=== PATIENT | female | born 1970 | race Caucasian/White ===

== ENCOUNTER → 2021-04-25 09:10 | Outpatient (CLI) | payer OTHER, SELFPAY ==
[2021-04-25 12:47] LABS: Thyroid Stim Hormone (TSH) 1.08 uIU/mL (0.358-3.74)
[2021-04-26 08:04] LABS: Thyroid Peroxidase AB < 8 IU/mL (0-34)
== END ==
PROVIDERS: PCP Family Medicine; Referring Provider Internal Medicine Endocrinology, Diabetes & Metabolism; Visit Provider Internal Medicine Endocrinology, Diabetes & Metabolism
DX: E04.9 Nontoxic goiter, unspecified (principal)
CPT/HCPCS: 36415; 84439; 84443; 86376

== ENCOUNTER 2022-03-03 13:17 | Emergency (ER) | payer OTHER, SELFPAY ==
[2022-03-03 13:18] VITALS: BP 136/61; PULSE 57; RESP 18; TEMP 36.7; O2SAT 99; BMI 24.7
--- NOTE | 2022-03-03 13:32 | VDLE_ITS ---
[id number] VL^VDUL^Venous Duplex US- Unilateral [id number] Reason For Study: pain RIGHT Chronic vein wall thickening is noted in the CFV, FV, POP V with normal venous flow patterns. T/P Trunk is compressible. PTV is compressible. RT PerV is compressible. GSV is normal. Procedure This is a venous duplex using B-mode, color flow and spectral Doppler. Exam performed portable in ED. The exam was abbreviated due to the COVID 19 protocol. The exam was diagnostic. A preliminary report was called and/or faxed to Dr. Johnson. VL/Venous Duplex US, Unilateral Interpretation Summary Vein wall thickening is noted in the right common femoral, femoral, and poplite al veins although normal venous flow pattern is identified. Patent and compressible right great saphenous vein No evidence for acute deep venous thrombosis Abbreviated COVID-19 protocol utilized Ordering Physician: Netta Johnson Performed By: Stephan Albarran RVT
--- NOTE | 2022-03-03 13:33 | EX.ED.DYSGE1 ---
HPI History of Present Illness Chief Complaint: Lower Extremity Injury Informant: patient Onset/Context/Timing Onset: Days (4 to 5 days) Context: Gradual Onset Timing: Waxes and wanes Current Severity: Mild Maximum Severity: Moderate Narrative Narrative: Patient presents secondary to right leg pain with occasional numbness and tingling. She has a history of blood clot and is concerned for this. Symptoms have been ongoing for for 5 days. 4 days ago she was in the car for 12 hours on a ride back from [place]. [facility] Medical History Cataracts, bilateral Enlarged thyroid Home Medications fish oil PO DAILY 01/01/21 [History Last Taken Unknown] omeprazole 20 mg capsule,delayed release 20 mg PO DAILY 01/01/21 [History Last Taken Unknown] Allergy/AdvReac Type Severity Reaction Status Date / Time morphine Allergy Mild itching Verified 03/03/22 13:20 Family History (Updated 01/01/21 @ 09:08 by Alannah Powers NP-C) Other Cancer Colon cancer Ovarian cancer Surgical History H/O shoulder surgery History of hip replacement Social History Smoking Status: Never smoker alcohol intake: never substance use type: does not use what type of physical activity do you participate in: none ROS ROS ED Constitutional Constitutional ED: Denies chills or fever(s) Eyes Eyes: Denies change in vision or discharge from eye(s) ENT ENT ED: Denies discharge from eye(s), rhinorrhea or sore throat Cardiovascular Cardiovascular: Denies chest pain or palpitations Respiratory/Chest Respiratory/Chest: Denies cough or dyspnea Gastrointestinal Gastrointestinal: Denies abdominal pain, diarrhea, nausea or vomiting Genitourinary Genitourinary ED: Denies difficulty urinating or dysuria Musculoskeletal Musculoskeletal: Reports extremity pain; Denies back pain Integumentary Denies Abrasions or rash Neurologic Neurologic: Reports paresthesias; Denies headache(s) or weakness Allergic/Immunologic Allergic/Immunologic ED: Denies lip swelling or urticaria EXAM Physical Exam Const Vital Signs: 03/03/22 13:18 Temperature 98.1 F Temperature Source Temporal Pulse Rate 57 L Respiratory Rate 18 Blood Pressure 136/61 H Blood Pressure Mean 86 Pulse Ox 99 Oxygen Delivery Method Room Air Positive well nourished and well developed General Appearance ED: well developed HEENT Reports normocephalic and head/scalp atraumatic Eyes PERRL and EOMs intact bilaterally Neck supple Chest Wall inspection of chest normal and palpation of chest normal Resp normal respiratory effort and clear to auscultation bilaterally Cardio regular rate and regular rhythm GI normal to inspection, nondistended, normoactive bowel sounds Palpation: soft Extremity Extremity Narrative: No significant right lower extremity edema. No calf tenderness on exam. Strong distal pulses with good range of motion. Neuro oriented x3 and no sensory deficits noted Sensorium / Orientation: alert Motor Exam: strength 5/5 throughout Psych mental status grossly normal Skin no rashes or lesions noted MDM MDM MDM Narrative Medical decision making narrative: Venous ultrasound is obtained. Tech reports no evidence of acute DVT. There is some evidence of old clot scarring. This was discussed with patient. She will follow-up with her primary care physician, Dr. Trimble. Discharge Plan Triage Chief Complaint: Lower Extremity Injury Other Complaint: Numb/Ting ED Provider: Netta Johnson Dx/Rx/DC Orders Clinical Impression: Leg pain, right Instructions: ED Contusion, Lower Extremity, ED Paraesthesias Prescriptions: No Action fish oil 600 mg capsule PO DAILY omeprazole 20 mg capsule,delayed release(DR/EC) 20 mg PO DAILY Primary Care Provider: Mihir Trimble Referrals: Mihir Trimble MD [Primary Care Provider] - 1 Week if not improving Disposition Disposition: Home, Self Care
== END 2022-03-03 14:10 | disposition home or self-care (01) ==
PROVIDERS: Emergency Provider Emergency Medicine; PCP Family Medicine; Visit Provider Emergency Medicine
DX: M79.604 Pain in right leg (principal); R20.0 Anesthesia of skin
CPT/HCPCS: 93971; 99282

== ENCOUNTER → 2023-04-30 | Outpatient (CLI) | payer OTHER, SELFPAY ==
--- NOTE | 2023-04-30 13:47 | ECHOD_ITS ---
Reason For Study: MYOTONIC DYSTROPHY Procedure This was a 2D Doppler, Color Flow transthoracic echocardiogram. The study was technically difficult. Exam performed in department. Left Ventricle Normal LV size. The estimated ejection fraction is 65 %. No evidence for diastolic dysfunction. No regional wall motion abnormalities noted. Right Ventricle Normal RV size. Normal systolic function. Atria Normal left atrium. Normal right atrium. No doppler evidence for ASD. Mitral Valve There is no mitral valve stenosis. Trivial mitral valve insufficiency. Tricuspid Valve There is no tricuspid stenosis. Trivial tricuspid valve insufficiency. Unable to estimate RV systolic pressure due to insufficient tricuspid regurgitant envelope. Aortic Valve Trisinus/trileaflet aortic valve. There is no aortic stenosis. No aortic valve insufficiency. Pulmonic Valve There is no pulmonic valvular stenosis. No pulmonic valve insufficiency. Great Vessels Normal aortic root. Pericardium/Pleural No pericardial effusion. MMode/2D Measurements & Calculations LVIDd: 4.7 cm IVSd: 1.1 cm Ao root diam: 3.1 cm LVIDs: 3.3 cm LVPWd: 1.0 cm RVDd: 3.6 cm FS: 30.8 % LAV(MOD-bp): 61.7 ml LVAd ap4: 25.3 cm2 LVAd ap2: 22.8 cm2 LAV(MOD-sp2): 55.4 ml LVLd ap4: 8.0 cm LVLd ap2: 8.0 cm LAV(MOD-sp4): 50.7 ml EDV(MOD-sp4): 69.8 ml EDV(MOD-sp2): 55.6 ml EDV(sp4-el): 67.5 ml EDV(sp2-el): 55.1 ml LVAs ap4: 12.9 cm2 LVAs ap2: 12.1 cm2 LVLs ap4: 5.7 cm LVLs ap2: 6.3 cm ESV(MOD-sp4): 26.6 ml ESV(MOD-sp2): 22.1 ml ESV(sp4-el): 24.6 ml ESV(sp2-el): 19.8 ml EF(MOD-sp4): 61.9 % EF(MOD-sp2): 60.3 % EF(sp4-el): 63.6 % SV(MOD-sp4): 43.2 ml SV(MOD-sp2): 33.6 ml SV(sp4-el): 42.9 ml LA dimension(2D): 3.6 cm LA A4 area: 17.8 cm2 RA A4 area: 15.2 cm2 Time Measurements MV dec time: 0.24 sec Doppler Measurements & Calculations MV E max isaac: 82.2 cm/sec Lat Peak E' Isaac: 11.5 cm/sec Med Peak E' Isaac: 9.0 cm/sec MV A max isaac: 56.6 cm/sec E/E' lat: 7.1 E/E' med: 9.1 MV E/A: 1.5 MV V2 max: 111.0 cm/sec MV P1/2t max isaac: 111.0 cm/sec Ao V2 max: 126.0 cm/sec MV max P.9 mmHg MV P1/2t: 81.4 msec Ao max P.4 mmHg MV V2 mean: 40.0 cm/sec MV dec slope: 399.2 cm/sec2 Ao V2 mean: 82.1 cm/sec MV mean P.99 mmHg Ao mean P.2 mmHg MV V2 VTI: 29.8 cm MVA(P1/2t): 2.7 cm2 Ao V2 VTI: 28.4 cm AV (velocity ratio): 1.0 LV V1 max: 143.8 cm/sec PA V2 max: 110.2 cm/sec TR max isaac: 293.4 cm/sec LV V1 max P.3 mmHg PA V2 mean: 83.5 cm/sec TR max P.5 mmHg LV V1 mean P.6 mmHg LV V1 mean: 86.2 cm/sec LV V1 VTI: 28.5 cm ECHO/Echo Complete Interpretation Summary The estimated ejection fraction is 65 %. No evidence for diastolic dysfunction. Trivial mitral valve insufficiency. Ordering Physician: SUDEEP CUETO Referring Physician: Mihir Trimble Performed By: Lubna Bang, [place], RVT
== END | disposition home or self-care (01) ==
PROVIDERS: PCP Family Medicine
DX: G71.11 Myotonic muscular dystrophy (principal); I05.9 Rheumatic mitral valve disease, unspecified
CPT/HCPCS: 93306

== ENCOUNTER 2024-03-03 11:21 | Emergency (ER) | payer OTHER, SELFPAY ==
[2024-03-03 11:23] VITALS: BP 127/44; PULSE 69; RESP 16; TEMP 36.6; O2SAT 100; BMI 26.1
--- NOTE | 2024-03-03 11:50 | EX.ED.DYSGE1 ---
HPI History of Present Illness Chief Complaint: General Illness Detail of Chief Complaint: Patient complains of right lower extremity pain. Informant: patient Onset/Context/Timing Onset: Days Context: Sudden Onset Timing: Continuous Quality: Pain Location: Right greater trochanteric region all the way down her leg Current Severity: Mild Maximum Severity: Moderate Worsened by: Movement, walking Relieved by: Nothing Associated Symptoms Associated Symptoms: Stone piece of history that the patient admitted was that she is fallen tw Narrative Narrative: Patient is a 53-year-old woman with history of muscular dystrophy. She has fallen twice onto her buttocks. She is complaining of pain in the right greater trochanteric region that radiates down her leg. She believes she has a blood clot because she had one 15 years ago. Patient has chest pain or shortness of breath. The person with her informing that she has fallen twice in that is his concern. She admits she landed on her buttocks. Patient denies bowel or bladder dysfunction. She has weakness in her legs because of muscular dystrophy. Patient denies fever, chills night sweats. When patient was in x-ray spoke to the . They have security cameras. He states he did not notice head trauma the first time she fell. She may have hit her head the second time. Her level of consciousness is no different than normal. This has been attributed to her muscular dystrophy. He states she sleeps a lot. Prior similar symptoms: No Recent Illness/Hospitalization: No PFSH [facility] Medical History Muscular dystrophy Enlarged thyroid Cataracts, bilateral Home Medications ?Medication ?Instructions ?Recorded ?Last Taken ?Type fish oil PO DAILY 01/01/21 Unknown History omeprazole 20 mg capsule,delayed 20 mg PO DAILY 01/01/21 Unknown History release hydrocodone-acetaminophen 5-325mg 1 tab PO Q6H PRN PRN Pain 3 days 03/03/24 Unknown Rx 5mg-325mg #10 TABLETS Allergy/AdvReac Type Severity Reaction Status Date / Time morphine Allergy Mild itching Verified 03/03/24 11:22 Family History Other Cancer Colon cancer Ovarian cancer Surgical History H/O shoulder surgery History of hip replacement Social History Smoking Status: Never smoker alcohol intake: never substance use type: does not use what type of physical activity do you participate in: none ROS ROS ED Constitutional Constitutional ED: Denies chills, fever(s) or subjective Musculoskeletal Musculoskeletal: Reports other Details: Right lower extremity pain. ; Denies arthralgias, back pain, myalgias or neck pain Integumentary Denies Abrasions or rash Neurologic Neurologic: Reports weakness; Denies headache(s) or paresthesias Hematologic/Lymphatic Hematologic/Lymphatic: Reports systems reviewed and no addt'l complaints, except as documented EXAM Physical Exam Const Vital Signs: 03/03/24 11:22 03/03/24 11:23 Temperature 97.8 F Temperature Source Temporal Pulse Rate 69 Respiratory Rate 16 Respiratory Effort Normal Non-Labored Respiratory Pattern Normal Blood Pressure 127/44 H Blood Pressure Mean 71 Pulse Ox 100 Oxygen Delivery Method Room Air Positive well nourished and well developed General Appearance ED: well developed and NAD; Negative for cyanotic, diaphoretic or pallor HEENT Reports dry mucous membranes Negative for trauma Mouth ED: Yes dry mucous membranes Mouth: dry mucous membranes Eyes PERRL and EOMs intact bilaterally Resp normal respiratory effort Cardio regular rate and regular rhythm Back/Spine no CVA tenderness General Back: Negative for CVA tenderness Cervical Spine: Negative for cervical spine tenderness Thoracic Spine / Upper Back: Negative for thoracic spinal tenderness Lumbar Spine / Lower Back: Negative for lumbar spinal tenderness Extremity normal to inspection Extremity Narrative: There is pain the patient with a greater trochanteric region, right ischial tuberosity and right superior pubic rami region. There is no crepitus. [place] 4 test causes her discomfort posteriorly. She also complains of pain laterally and in the buttocks area. Straight leg test was negative. She has pain with varus valgus stress testing of her right knee. There is no effusion. There is no laxity with Hemanth's test. DP and PT pulse are palpable. Patient has weakness with dorsi and plantarflexion of her foot. This is been attributed to her muscular dystrophy. There is also weakness on the left side. DTRs 1-2+ at the patella and ankle and symmetric. Neuro oriented x3 and CN's II-XII intact bilaterally Neuro Narrative: Awake but not alert. Sensorium / Orientation: Negative for alert Psych mental status grossly normal Skin no rashes or lesions noted, no wounds and skin turgor normal General Skin Exam: Negative for jaundice or pallor MDM MDM MDM Narrative Medical decision making narrative: Based on physical exam concern is contusion versus fracture involving the pelvis hip region. X-ray was obtained. Patient was medicated with [place] which she has had in the past without reaction. Radiography Chest X-Ray - ED: Read by ED Physician (Three-view x-ray of the right hip reveals evidence of a right and left total hip arthroplasty. There is no evidence of periprosthetic fracture. There is no dislocation of the prosthetic joints. There is no evidence of fracture to the pelvic bone. This has been reviewed interpreted by me at ) Diagnostic Testing: Clinical Impression(s) from Imaging Studies Hip/Pelvis X-Ray 03/03/24 11:56 IMPRESSION: Bilateral hip replacements, with no periprosthetic fracture. Multiple foci of metallic shrapnel adjacent to the right hip arthroplasty and overlying the right iliac bone. Electronically Signed: Ochoa Dubose MD at 12:18 EDT Reading Location ID and State: [facility] / [place] , Service support , Treatment and Re-Evaluation :: Patient and were told of results. Plan is discharged to home with pain medicine and treatment for contusion. Discharge Plan Triage Chief Complaint: General Illness ED Provider: Cristi Brower Dx/Rx/DC Orders Clinical Impression: Contusion of right hip, initial encounter, Contusion of lower back and pelvis, initial encounter, Injury due to fall Instructions: ED Contusion, Lower Extremity Prescriptions: New hydrocodone-acetaminophen 5-325 mg tablet 1 tab PO Q6H PRN PRN (Reason: Pain) 3 Days Qty: 10 0RF No Action fish oil 600 mg capsule PO DAILY omeprazole 20 mg capsule,delayed release(DR/EC) 20 mg PO DAILY Primary Care Provider: Mihir Trimble Referrals: Mihir Trimble MD [Primary Care Provider] - 1 Week if not improving Activity Restrictions/Additional Instructions: 1. Apply ice to right buttocks right hip region 6-10 times a day. 2. If no improvement after several days recommend follow-up with Dr. Trimble Print Language: Faroese Disposition Disposition: Home, Self Care
[2024-03-03] MEDS: HYDROcodone Bitartrate/Apap 5/325 Tablet PO (11:53)
--- NOTE | 2024-03-03 11:56 | RAD_ITS ---
STUDY: X-RAY - PELVIS AND RIGHT HIP REASON FOR EXAM: Female, 53 years old. Injury/Pain TECHNIQUE: 3 views of the pelvis and right hip. COMPARISON: None. FINDINGS: There are bilateral hip replacements in place. There is no periprosthetic fracture. There are multiple foci of metallic shrapnel adjacent to the right hip arthroplasty and overlying the right iliac bone. There is a non-specific bowel gas pattern. Normal visualized soft tissue structures. Normal bilateral iliac wings, sacroiliac joints and visualized sacrum. Normal bilateral superior and inferior pubic rami. Normal pubic symphysis. Normal bilateral ischial tuberosities. RAD/HIP, UNI W/ Pelvis 2-3 Views IMPRESSION: Bilateral hip replacements, with no periprosthetic fracture. Multiple foci of metallic shrapnel adjacent to the right hip arthroplasty and overlying the right iliac bone. Electronically Signed: Ochoa Dubose MD at 12:18 EDT ,
== END 2024-03-03 13:08 | disposition home or self-care (01) ==
PROVIDERS: Emergency Provider Emergency Medicine; PCP Family Medicine; Visit Provider Emergency Medicine
DX: S70.01XA Contusion of right hip, initial encounter (principal); G71.00 Muscular dystrophy, unspecified; S20.229A Contusion of unspecified back wall of thorax, initial encounter; W19.XXXA Unspecified fall, initial encounter; R07.9 Chest pain, unspecified; R06.02 Shortness of breath; Z79.899 Other long term (current) drug therapy; Z86.718 Personal history of other venous thrombosis and embolism; Z96.643 Presence of artificial hip joint, bilateral
CPT/HCPCS: 73502; 99283